=== PATIENT | female | born 1980 | race Caucasian/White ===

== ENCOUNTER 2018-08-20 11:17 | Emergency (ER) | payer BC ==
[~2018-08-20] VITALS: Ht 172.7 cm; Wt 56.7 kg
--- NOTE | 2018-08-20 12:42 | NUR ---
Patient discharged to home in stable conditon. Written and verbal after care instructions given. Patient verbalizes understanding of instructions.PT WAKLS IN STEADY GAIT.
[2018-08-20 12:43] VITALS: BP 119/66
== END 2018-08-20 12:47 | disposition home or self-care (01) ==
LOC: ER 11:19
DX: R42 Dizziness and giddiness (principal); Z88.1 Allergy status to other antibiotic agents; Z88.8 Allergy status to other drugs, medicaments and biological substances
CPT/HCPCS: 70450; A4663

== ENCOUNTER 2022-03-23 11:42 | Emergency (ER) | payer SELFPAY ==
[~2022-03-23] VITALS: Ht 177.8 cm; Wt 59.0 kg
[2022-03-23] MEDS ORDERED: MAGNESIUM CITRATE 296 ML BOTTLE PO ONE (12:00)
--- NOTE | 2022-03-23 12:04 | NUR ---
DR REBOLLEDO AT BEDSIDE FOR EVALUATION.
[2022-03-23] MEDS ORDERED: DOCU-141 PO (12:12)
[2022-03-23] MEDS ORDERED: POLY17PO4 PO (12:12)
[2022-03-23 12:52] LABS: *BILIRUBIN,URIN 1+ (NEGATIVE); *BLOOD, URINE NEGATIVE (NEGATIVE); *CLARITY,URINE SLIGHTLY CLOUDY (CLEAR); *COLOR,URINE YELLOW (YELLOW); *KETONES,URINE NEGATIVE (NEGATIVE); *UROBILINOGEN,URINE 0.2 E.U./dl (NORMAL); LEUKOCYTE ESTERASE ,URINE NEGATIVE (NEGATIVE); NITRITE, URINE NEGATIVE (NEGATIVE); PH,URINE 5.5 (5.0-8.0); UGLUCOSE NEGATIVE (NEGATIVE)
[2022-03-23 13:39] LABS: MUCUS,URINE MANY /LPF (0-FEW)
--- NOTE | 2022-03-23 13:39 | NUR ---
Pt refused medication PO was informed.
[2022-03-23 13:40] VITALS: BP 125/80
[2022-03-23 13:40] LABS: BACTERIA,URINE FEW /HPF (NONE SEEN); SQUAMOUS EPITHELIAL CELL,UR FEW /HPF (NONE SEEN); WBC,URINE 0-3 /HPF (0-3)
--- NOTE | 2022-03-23 13:40 | NUR ---
Patient discharged to home in stable condition. Written and verbal after care instructions given. Patient verbalizes understanding of instructions. Stressed follow up or return to ER for worsening s/s.
[2022-03-23 13:41] LABS: RBC,URINE 0-3 /HPF (0-3)
[2022-03-23 13:47] LABS: *URINE HCG, QUAL NEGATIVE (NEGATIVE)
== END 2022-03-23 13:40 | disposition home or self-care (01) ==
LOC: ER 11:44
DX: K59.00 Constipation, unspecified (principal); R35.0 Frequency of micturition; Z88.0 Allergy status to penicillin; Z88.8 Allergy status to other drugs, medicaments and biological substances; K58.9 Irritable bowel syndrome, unspecified
CPT/HCPCS: 84703; A4663

== ENCOUNTER 2022-04-11 20:41 | Emergency (ER) | payer BC ==
[~2022-04-11 20:41] MED LIST: DOCU-141 PO; POLY17PO4 PO
--- NOTE | 2022-04-11 21:00 | NUR ---
Pt not in waiting room.
== END 2022-04-12 02:00 | disposition left against medical advice (07) ==
LOC: ER 21:43
DX: Z53.21 Procedure and treatment not carried out due to patient leaving prior to being seen by health care provider (principal)

== ENCOUNTER 2022-04-12 01:50 | Emergency (ER) | payer BC ==
[~2022-04-12] VITALS: Ht 177.8 cm; Wt 59.0 kg
--- NOTE | 2022-04-12 02:42 | NUR ---
Dr Reddy at bedside, MSE in progress.
[2022-04-12 03:09] LABS: *BILIRUBIN,URIN 1+ (NEGATIVE); *BLOOD, URINE NEGATIVE (NEGATIVE); *COLOR,URINE YELLOW (YELLOW); *KETONES,URINE TRACE (NEGATIVE); *UROBILINOGEN,URINE 0.2 E.U./dl (NORMAL); LEUKOCYTE ESTERASE ,URINE NEGATIVE (NEGATIVE); NITRITE, URINE NEGATIVE (NEGATIVE); PH,URINE 5.5 (5.0-8.0); UGLUCOSE NEGATIVE (NEGATIVE)
[2022-04-12 03:11] LABS: *CLARITY,URINE HAZY (CLEAR)
[2022-04-12 03:27] LABS: HEMATOCRIT 34.4 % (31.2-41.9); MEAN CORPUSCULAR HEMOGLOBIN 22.6 uug (24.7-32.8); MEAN CORPUSCULAR VOLUME 71.7 fL (75.5-95.3); PLATELET COUNT (AUTO) 242 K/uL (179-408)
[2022-04-12 03:32] LABS: BACTERIA,URINE MANY /HPF (NONE SEEN); RBC,URINE 0-3 /HPF (0-3); WBC,URINE 0-3 /HPF (0-3)
[2022-04-12 03:33] LABS: SQUAMOUS EPITHELIAL CELL,UR FEW /HPF (NONE SEEN); YEAST,URINE MANY /HPF (NONE SEEN)
[2022-04-12 03:36] LABS: CREATININE 0.7 mg/dL (0.6-1.3); POTASSIUM 3.7 mmol/L (3.5-5.1)
[2022-04-12 03:41] LABS: BILIRUBIN,DIRECT 0.1 mg/dL (0.0-0.2); BILIRUBIN,TOTAL 0.4 mg/dL (0.2-1.0); TOTAL PROTEIN, SERUM 7.8 g/dL (6.4-8.2)
--- NOTE | 2022-04-12 06:45 | NUR ---
Patient discharged to home in stable condition. Written and verbal after care instructions given. Patient verbalizes understanding of instructions. Stressed follow up or return to ER for worsening s/s. pt ambulated with steady gait. denies pain. no SOB. no chest pain. AOx4
[2022-04-12 06:46] VITALS: BP 123/61
== END 2022-04-12 06:46 | disposition home or self-care (01) ==
LOC: ER 01:55
DX: R10.9 Unspecified abdominal pain (principal); Z20.822 Contact with and (suspected) exposure to COVID-19; F31.9 Bipolar disorder, unspecified; K58.1 Irritable bowel syndrome with constipation
CPT/HCPCS: 36415; 83690; 85025; 87086; A4663